=== PATIENT | female | born 1995 | race Caucasian/White ===

== ENCOUNTER 2021-01-13 00:44 | Emergency (ER) | payer OTHER, SELFPAY ==
--- NOTE | ~2021-01-13 | XR_ITS ---
EXAMINATION: XR CHEST CLINICAL INFORMATION: Question pneumonia COMPARISON: None TECHNIQUE: Frontal view of the chest was obtained. FINDINGS: Lung volumes are symmetric. No focal consolidation is seen. No evidence of pneumothorax, pleural effusion, or pulmonary edema. The cardiomediastinal contour is unremarkable. No acute osseous findings are seen. XR/XR chest 1V IMPRESSION: No acute cardiopulmonary findings.
[2021-01-13 00:47] VITALS: BP 118/71; PULSE 89; RESP 16; TEMP 36.4; O2SAT 95; BMI 39.1
--- NOTE | 2021-01-13 01:27 | ED.GENADULT ---
HPI - General Adult General Chief complaint: Extremity Problem Stated complaint: Neck/Shoulder pain Time Seen by Provider: 01/13/21 01:14 Source: patient Mode of arrival: ambulatory Limitations: no limitations History of Present Illness HPI narrative: Patient noticed small lump on the left supraclavicular area just prior to arrival which is tender no injury no open wound no shortness of breath no history of cancer Related Data Allergies Allergy/AdvReac Type Severity Reaction Status Date / Time No Known Allergies Allergy Unverified 12/10/19 16:39 Review of Systems Review of Systems: Yes all other systems are reviewed and are negative [facility] Social History Social History Advance Directives: No Patient : No Physical Exam Vital Signs: Vital Signs: Last Vital Signs Temp 97.6 F 01/13/21 00:47 Pulse 89 01/13/21 00:47 Resp 16 01/13/21 00:47 BP 118/71 01/13/21 00:47 Pulse Ox 95 01/13/21 00:47 Body Mass Index 39.1 Const: General: comfortable and no acute distress HENMT: Head: Yes normal to inspection Eyes: General: appearance normal, both eyes and all related structures Neck: Neck images: 1. 1 cm lymph node slightly tender freely movable Resp: Effort & Inspection: normal respiratory effort Auscultation: clear to auscultation bilaterally Cardio: Rate: regular rate Rhythm: regular rhythm Heart sounds: S1 normal heart sound present and S2 normal heart sound present GI: Inspection: Yes normal to inspection Palpation (GI): Soft to palpation and nontender Extrem: General: Yes normal to inspection Medical Decision Making [facility] Narrative Medical decision making narrative: Patient has small lymph node left supraclavicular tender to touch likely inflammatory patient advised to follow-up with PCP if this has continued to increase Discharge Plan Discharge Clinical Impression: Lymphadenopathy, cervical Patient Disposition: Home, Self-Care Instructions: Lymphadenopathy (ED) Additional Instructions: Keep an eye on the lymph node if it continues to grow big may need further evaluation follow with PCP
== END 2021-01-13 02:21 | disposition home or self-care (01) ==
PROVIDERS: Emergency Provider Internal Medicine
DX: R59.0 Localized enlarged lymph nodes (principal); R07.89 Other chest pain
CPT/HCPCS: 71045; 99283

== ENCOUNTER 2021-03-10 13:12 | Emergency (ER) | payer OTHER, SELFPAY ==
[2021-03-10 13:24] VITALS: BP 122/79; PULSE 94; RESP 18; TEMP 36.5; O2SAT 97; BMI 24.1
--- NOTE | 2021-03-10 14:25 | ED_ITS ---
HPI - Back Pain/Injury General Chief Complaint: Back Pain/Injury Stated Complaint: UPPER BACK PAIN Time Seen by Provider: 03/10/21 13:50 Source: patient Mode of arrival: ambulatory History of Present Illness HPI Narrative: 25-year-old female presenting to the ED complaining of upper back pain radiating down bilateral arms times a few days. Patient reports she has seen a set as a lot of heavy lifting at work. Denies known injury/trauma or fall. Denies numbness, tingling, weakness, CP/SOB, urinary incontinence/retention MD elicited complaint: back pain Related Data Home Medications Medication Instructions Recorded Confirmed etonogestrel 68 mg subdermal SUBDERMAL 01/20/21 implant (Nexplanon) Previous Rx's Medication Instructions Recorded acetaminophen 500 mg tablet 500 mg PO Q6H PRN #20 tab 03/10/21 (Tylenol Extra Strength) cyclobenzaprine 5 mg tablet 5 mg PO Q8H PRN 5 Days #14 tab 03/10/21 lidocaine 5 % topical patch 1 patch TOPICAL DAILY PRN #30 ea 03/10/21 (Lidoderm) MDD remove after 12 hours naproxen 500 mg tablet 500 mg PO BID PRN 10 Days #20 tab 03/10/21 Allergies Allergy/AdvReac Type Severity Reaction Status Date / Time No Known Allergies Allergy Verified 03/10/21 13:28 Review of Systems Review of Systems: Constitutional: No Fever, No Chills ENT/Mouth: No Ear Pain, No Nasal Congestion, No Sinus Pain, No Hoarseness, No sore throat, No Rhinorrhea, No Swallowing Difficulty Cardiovascular: No Chest Pain, No SOB Respiratory: No Cough Gastrointestinal: No Nausea, No Vomiting, No Diarrhea, No Constipation, No Abdominal pain Genitourinary: No Dysuria, No Urinary Frequency, No Hematuria, No Urinary Incontinence/retention Musculoskeletal: + joint pain, No Myalgias, No Joint Swelling Skin: No Skin Lesions, No rash Neuro: No Weakness, No Numbness, No Paresthesias Yes all other systems are reviewed and are negative Neurologic: Denies Sensory deficit (Neuro) [facility] Past Medical History Attestation statement: The following information was validated with the patient. Medical History Patient denies medical problems Social History Social History Patient Tobacco Use Status: Current everyday Tobacco user Advance Directives: No Advance Directives Information Provided: Yes Physical Exam Vital Signs: Vital Signs: Last Vital Signs Temp 97.7 F 03/10/21 13:24 Pulse 94 03/10/21 13:24 Resp 18 03/10/21 13:24 BP 122/79 03/10/21 13:24 Pulse Ox 97 03/10/21 13:24 BMI result Body Mass Index 24.1 Const: General: cooperative and healthy appearing Orientation/consciousness: patient oriented x3 Limitations: no limitations HENMT: Head: Yes normal to inspection and Yes atraumatic Ears: hearing grossly normal bilaterally General nose exam: Normal external nose present Face and sinus: Yes normal facial exam Eyes: General: appearance normal, both eyes and all related structures EOM: EOMs intact bilaterally Neck: Other: No midline cervical spinous tenderness. Left-sided paraspinal cervical tenderness to palpation and bilateral trapezius muscle tenderness to palpation Neck: Yes normal visual inspection Resp: Effort & Inspection: normal respiratory effort and no respiratory distress Auscultation: clear to auscultation bilaterally Cardio: Rate: regular rate Heart sounds: S1 normal heart sound present and S2 normal heart sound present GI: Inspection: Yes normal to inspection Palpation (GI): Soft to palpation, nontender, no guarding and not rigid : Other: No midline thoracic/lumbar spinous tenderness General: Yes no CVA tenderness Back/Spine/Pelvis: Back: no CVA tenderness Skin: Rashes: no rashes Wounds: no wounds Neuro: Other: No saddle anesthesia. Strength intact throughout. Ambulating with steady gait General: patient oriented x3, tone normal and moves all extremities Gait exam (Neuro): Normal gait present Sensory Exam: No Sensory deficit (Neuro) Extrem: General: Yes normal to inspection MDM - Back Pain/Injury MDM Narrative Medical decision making narrative: 25-year-old female presenting to the ED complaining of upper back pain radiating down bilateral arms times a few days. On exam vital signs stable, NAD/nontoxic, physical exam as above. Concern for MSK pain/strain/muscle spasming. Low concern for cauda equina, cord compression, cervical dissection or intracranial pathology Medical Records Attestation: I reviewed the patient's medical records. Lab Data Attestation: I reviewed the patient's lab results. Discharge Plan Discharge Clinical Impression: Neck muscle strain Qualifiers: Encounter type: initial encounter Qualified Code(s): S16.1XXA - Strain of muscle, fascia and tendon at neck level, initial encounter Patient Disposition: Home, Self-Care Instructions: Cervical Sprain (ED) Additional Instructions: Your pain is likely musculoskeletal Flexeril is a muscle relaxer, take at night as it makes you drowsy, do not drive, drink alcohol, or operate machinery while taking it Naproxen as an anti-inflammatory / pain medication, take with food Lidoderm patches are numbing patches, apply to painful area In addition take Tylenol at home If symptoms persist or worsen, pain becomes unbearable, you developed urinary retention or incontinence, or weakness return to the ED Prescriptions: New acetaminophen [Tylenol Extra Strength] 500 mg tablet 500 mg PO Q6H PRN (Reason: pain or fever) Qty: 20 RF: 0 lidocaine [Lidoderm] 5 % adhesive patch,medicated 1 patch topical DAILY MDD remove after 12 hours PRN (Reason: pain) Qty: 30 RF: 0 naproxen 500 mg tablet 500 mg PO BID PRN (Reason: pain) 10 Days Qty: 20 RF: 0 cyclobenzaprine 5 mg tablet 5 mg PO Q8H PRN (Reason: pain (scale score 7-10)) 5 Days Qty: 14 RF: 0 No Action Nexplanon 68 mg implant subdermal RF: 0 Referrals: Physician,Unknown J [Primary Care Provider] - 5 days (as needed) Stand Alone Forms: Work/School Release
[2021-03-10] MEDS: Ketorolac Tromethamine 30 MG/ML VIAL IM (14:27)
[2021-03-10 14:41] VITALS: RESP 17
== END 2021-03-10 14:46 | disposition home or self-care (01) ==
PROVIDERS: Emergency Provider Emergency Medicine
DX: M54.6 Pain in thoracic spine (principal); M79.602 Pain in left arm; M79.601 Pain in right arm; Z79.899 Other long term (current) drug therapy
CPT/HCPCS: 96372; 99283; 99284; J1885

== ENCOUNTER 2022-08-10 11:32 | Outpatient (REF) | payer OTHER, SELFPAY ==
[2022-08-10 12:52] LABS: Influenza A PCR NEGATIVE (Negative); Influenza B PCR NEGATIVE (Negative); Resp Syncy Virus RNA Qual PCR NEGATIVE (Negative); SARS COV2 PCR INHOUSE NEGATIVE (Negative)
== END 2022-08-10 11:33 | disposition home or self-care (01) ==
LOC: HO.LNP 11:32
PROVIDERS: Visit Provider Physician Assistant Medical
DX: Z20.822 Contact with and (suspected) exposure to COVID-19 (principal); R05.9 Cough, unspecified
CPT/HCPCS: 0241U